=== PATIENT | male | born 1995 | race Two or more races ===

== ENCOUNTER → 2021-12-20 10:26 | Emergency (ER) | payer OTHER ==
[~2021-12-20] VITALS: Ht 172.7 cm; Wt 127.0 kg
[~2021-12-20 10:26] MED LIST: IBUP800T27 PO; KETOROLAC TROMETH 60MG/2ML VIAL IM ONE
[2021-12-20 11:57] VITALS: BP 134/82
== END | disposition home or self-care (01) ==
LOC: ER 10:26
DX: G44.319 Acute post-traumatic headache, not intractable (principal)
CPT/HCPCS: 70450; 96372; 99284; J1885